=== PATIENT | male | born 1950 | race Caucasian/White ===

== ENCOUNTER 2018-01-05 03:42 | Emergency (ER) | payer MEDICARE, OTHER ==
[~2018-01-05] VITALS: Ht 175.3 cm; Wt 74.8 kg
[2018-01-05] MEDS ORDERED: ASPIR 8181 MG (03:51)
[2018-01-05] MEDS ORDERED: SOTALOL 120 MG120 MG (03:52)
[2018-01-05] MEDS ORDERED: ALTACE10 MG (03:52)
[2018-01-05] MEDS ORDERED: CLARITIN10 M3 (03:52)
[2018-01-05] MEDS ORDERED: LIPITOR40 MG (03:52)
[2018-01-05] MEDS ORDERED: COUMADIN 2 MG TA2 M1 (03:53)
[2018-01-05] MEDS ORDERED: COUMADIN 2.5MG2.5 M1 (03:53)
[2018-01-05 04:32] LABS: ABSOLUTE LYMPHOCYTES 1.2 thou/uL (0.8-5.3); ABSOLUTE MONOCYTES 0.7 thou/uL (0.0-1.2); ABSOLUTE NEUTROPHILS 6.6 thou/uL (1.6-8.1); BASOPHILS 0.4 %; EOSINOPHILS 0.5 %; HEMATOCRIT 40.3 % (42.0-52.0); HEMOGLOBIN 13.7 gm/dL (14.0-18.0); LYMPHOCYTES 13.7 %; MCH 30.9 pg (26.0-34.0); MCV 91.1 fL (80.0-100.0); MONOCYTES 8.6 %; MPV 7.8 fl. (7.2-11.1); NUCLEATED RBCS 0 /100WBC; PLATELET COUNT* 111 thou/uL (150-400); POLYS 76.8 %; RBC 4.42 mil/uL (4.50-6.00); RDW-CV 13.1 % (10.5-14.5); WBC 8.6 thou/uL (4.0-11.0)
[2018-01-05 04:46] LABS: CALCIUM 8.3 mg/dL (8.5-10.1); CREATININE 0.9 mg/dL (0.6-1.3); POTASSIUM 3.9 mmol/L (3.5-5.1)
[2018-01-05 04:50] LABS: APTT 38.5 Seconds (25.0-31.3); INR 3.2; PROTIME 30.8 Seconds (9.20-11.50)
[2018-01-05 04:51] LABS: ALBUMIN 3.5 g/dL (3.4-5.0); TOTAL BILIRUBIN 1.6 mg/dL (<0.1-1.0); TOTAL PROTEIN 6.5 g/dL (6.4-8.2)
[2018-01-05 05:10] VITALS: BP 111/54
== END 2018-01-05 05:10 | disposition home or self-care (01) ==
LOC: M.ERS 03:42
PROVIDERS: Family Medicine
DX: I97.618 Postprocedural hemorrhage of a circulatory system organ or structure following other circulatory system procedure (principal); I48.91 Unspecified atrial fibrillation